=== PATIENT | female | born 1970 | race Caucasian/White ===

== ENCOUNTER 2024-12-15 12:19 | Outpatient (CLI) | payer OTHER, SELFPAY ==
--- NOTE | ~2024-12-15 | US_ITS ---
Pelvic ultrasound. Clinical History: Postmenopausal bleeding Technique: Realtime transabdominal and transvaginal scanning of the pelvis was performed. Color flow Doppler and Doppler spectral analysis were performed. Findings: The uterus is anteverted. The endometrial stripe has a thickness of 3 mm. Mild complex nab othian cyst present. There is a focal coarse calcification at the lower uterine segment or cervix, po ssibly small calcified fibroid. The right ovary measures 3.3 x 3.4 x 3.1 cm. Simple right ovarian cyst measures 2.5 cm in maximum arnold meter. The left ovary measures 1.4 x 1.4 x 1.6 cm. No significant left ovarian or adnexal mass is seen. There is no evidence of free fluid in the cul de sac. Impression: No abnormal endometrial thickening. Small calcified fibroid or other calcification of the lower uterine segment. 2.5 cm right ovarian cyst. Reviewed, dictated and finalized at [facility]. Impression: No abnormal endometrial thickening. Small calcified fibroid or other calcification of the lower uterine segment. 2.5 cm right ovarian cyst.
== END 2024-12-15 12:20 | disposition home or self-care (01) ==
PROVIDERS: PCP Student in an Organized Health Care Education/Training Program; Visit Provider Student in an Organized Health Care Education/Training Program
DX: N95.0 Postmenopausal bleeding (principal)
CPT/HCPCS: 76830; 76856